=== PATIENT | female | born 1980 | race American Indian/Alaskan Native ===

== ENCOUNTER 2017-12-25 12:54 | Emergency (ER) | payer MEDICAID, OTHER ==
[~2017-12-25] VITALS: Ht 565.3 cm; Wt 68.2 kg
[2017-12-25 13:08] VITALS: BP 133/76
== END 2017-12-25 14:19 | disposition home or self-care (01) ==
LOC: ER 12:55
DX: Z02.89 Encounter for other administrative examinations (principal); F15.10 Other stimulant abuse, uncomplicated
CPT/HCPCS: 99281